=== PATIENT | male | born 1950 | race Caucasian/White ===

== ENCOUNTER 2021-08-25 11:10 | Observation (INO) | payer OTHER ==
[2021-08-18 13:05] LABS: HEMATOCRIT 45.1 % (42.0-52.0); HEMOGLOBIN 15.2 gm/dL (14.0-18.0); MCH 33.2 pg (26.0-34.0); MCHC 33.6 g/dL (28.0-37.0); MCV 98.8 fL (80.0-100.0); RBC 4.56 mil/uL (4.50-6.00); RDW 14.4 % (10.5-14.5); WBC 6.2 thou/uL (4.0-11.0)
[2021-08-18 13:09] LABS: URINE BILIRUBIN NEGATIVE (Negative); URINE BLOOD NEGATIVE (Negative); URINE CLARITY CLEAR; URINE COLOR YELLOW; URINE GLUCOSE-RANDOM* NEGATIVE (Negative); URINE KETONES NEGATIVE (Negative); URINE LEUKOCYTES-REFLEX NEGATIVE (Negative); URINE NITRITE-REFLEX NEGATIVE (Negative); URINE PROTEIN (DIPSTICK) NEGATIVE (Negative); URINE SPECIFIC GRAVITY 1.015 (1.005-1.035); URINE UROBILINOGEN 0.2 E.U./dl (0.2-1.0)
[2021-08-18 13:20] LABS: CALCIUM 8.9 mg/dL (8.5-10.1); CREATININE 0.9 mg/dL (0.7-1.3); POTASSIUM 4.6 mmol/L (3.5-5.1)
[2021-08-18 13:21] LABS: INR 0.93; PROTIME 10.2 Seconds (10.5-12.1)
--- NOTE | 2021-08-18 13:37 | EKG ---
[address] [address] ELECTROCARDIOGRAM REPORT Name: BONYDAYANNA Room #: [facility]..#: [id number] Admission: Attend Phys: Gilbert Espinosa MD Discharge: Date of : 46 Report #: [id number] [facility] Test Date: 2021-08-18 Test Time: 13:01:21 Pat Name: DAYANNA LOVETT Department: Room: Gender: Compass Operator: Eduardo ARTHUR : 1950 Requested By: Gilbert Espinosa Order Number: [id number] : Quinton Chapin Measurements Intervals [place]er Rate: 74 P: 19 RI: 153 QRS: 45 QRSD: 108 T: -3 QT: 388 QTc: 431 Interpretive Statements Sinus rhythm Probable inferior infarct, age indeterminate No previous ECG available for comparison Electronically Signed On 08-18-2021 13:37:15 [employer] by Quinton Chapin [email or web address] <ELECTRONICALLY SIGNED> By: Quinton Chapin MD, [facility] 08/18/21 1337 1301 1301 Quinton Chapin MD, FACPavel /EPI
[~2021-08-25] VITALS: Ht 180.3 cm; Wt 102.1 kg
[~2021-08-25 11:10] MED LIST: CLARITIN10 M3 PO; IBUPROFEN 400400 M1 PO; IRON325 M1 PO; LIPITOR40 MG PO; PROTONIX40 M2 PO; VYTORIN 10-401 EACH PO; ZESTRIL5 MG PO
[2021-08-25 12:21] VITALS: BP 134/86
[2021-08-25 17:44] VITALS: BP 130/81
--- NOTE | 2021-08-25 18:30 | NUR ---
PT RECEIVED FROM [facility] AT 1735 ALERT AND IN NO PAIN. SETTLED INTO BED. ORINETED TO UNIT. DECLINED ANY FOOD. DRINKING WATER. IV FLUIDS INFUSING. URINAL AT BEDSIDE. DSNG DRY W/ POLAR [place].
[2021-08-25 19:36] VITALS: BP 141/98
--- NOTE | 2021-08-26 04:01 | NUR ---
ASSESSMENT COMPLETED.RIGHT KNEE WITH CHIDI DRSG WELL SCDS AND POLAR [place] IN PLACE. AFEBRILE.ROOM AIR.PT ABLE TO SIT BY EDGE OF BED AND URINATE.IVF INFUSING.NO FURTHER CONCERNS AT THIS TIME.
[2021-08-26 04:15] VITALS: BP 132/72
[2021-08-26 07:25] VITALS: BP 133/92
--- NOTE | 2021-08-26 09:20 | NUR ---
71 year old male admitted for an elective R Navio Knee replacement. Will review therapy recommendations and discuss discharge needs with the patient who is listed per the record as A&O x4 and currently lives at home with spouse Macarena Santacruz at [phone]. Visited with sherita at beside, anticipated dc home today. Outpatient therapy set up with [facility] in [facility]. Has walker already. Independent. His will pick him up.
[2021-08-26 11:28] VITALS: BP 133/92
--- NOTE | 2021-08-26 11:41 | NUR ---
PT ALERT AND ORIENTED TIMES FOUR, VSS, IVF INFUSING PER ORDER. SCHEDULED PAIN MEDICATIONS CONTROLLING PAIN WELL. PT TOLEARTES MEDS AND MEALS. PT WORKED WELL WITH PHYSICAL THEARPY THIS MORNING, AND WAS CLEARED FOR DISCHARGE.
--- NOTE | 2021-08-28 10:49 | O ---
[facility] [place] [address] OPERATIVE REPORT Name: DAYANNA LOVETT Room #: 436-[facility] Samira Ashton#: [id number] Admission: 08/25/21 Attend Phys: Gilbert Espinosa MD Discharge: 08/26/21 Date of : 46 Report #: [id number] THIS REPORT FOR: cc: DIONISIO LAMA Physician not on staff Gilbert Espinosa MD ~ DATE OF SERVICE: 08/25/2021 PREOPERATIVE DIAGNOSIS: Right knee osteoarthritis. POSTOPERATIVE DIAGNOSIS: Right knee osteoarthritis. PROCEDURE: Right total knee arthroplasty using Navio robotic assistance. SURGEON: Gilbert Espinosa MD GRAVURE PRESS SET UP OPERATOR: France Ruano PA-C. INDICATION FOR GRAVURE PRESS SET UP OPERATOR: Throughout the case, extensive retraction, manipulation of the knee was required. This was afforded to me by my cook's assistant. ANESTHESIA: LMA with adductor canal block. IMPLANTS: A [employer] size 7 Journey II BCS cobalt chrome femur, size 6 tibia, size 11 polyethylene and size 35 patella. TOURNIQUET TIME: 52 minutes. ESTIMATED BLOOD LOSS: 25 mL COMPLICATIONS: None. SPECIMENS: None. CONDITION UPON LEAVING THE OR: Stable. INDICATIONS FOR PROCEDURE: The patient is a 71-year-old gentleman with severe right knee osteoarthritis. He had failed conservative measures for this and after discussion with him, he elected for right total knee arthroplasty. DESCRIPTION OF PROCEDURE: Risks, benefits, alternatives, complications were discussed in detail with the patient including but not limited to risk of anesthesia, risk of damage to nerves, arteries, blood vessels, risk for infection, bleeding, risk for continued knee pain and need for reoperation. Informed consent was obtained from the patient. Right knee was appropriately marked in the preoperative holding area. IV Ancef for preoperative antibiotics. [address] [address] OPERATIVE REPORT Name: DAYANNA LOVETT Room #: 436-P LETHA Ashton#: [id number] Admission: 08/25/21 Attend Phys: Gilbert Espinosa MD Discharge: 08/26/21 Date of : 46 Report #: [id number] Adductor canal block was placed by anesthesia. He was brought to the operating room and placed in the supine position on the operating table. LMA anesthesia was induced without complication. Tourniquet was placed on the right thigh. Right lower extremity was prepped and draped in normal sterile fashion. Timeout was performed properly identifying the patient and procedure as well as the instrumentation. All in the operating room were in agreement. Right lower extremity was exsanguinated, tourniquet was inflated. Tourniquet time was 52 minutes. Standard midline approach to knee was made with 10 blade through the skin. Dissection was taken down sharply to the fascia. Deep flaps were developed medially and laterally. Fresh 10 blade was used to make a medial parapatellar arthrotomy and the knee was inspected. There was severe medial compartment osteoarthritis with mild to moderate lateral and patellofemoral compartment osteoarthritis. ACL and PCL were removed sharply. Reference pins were placed in the tibia and the femur and the knee was digitally mapped using the [employer] robotic system. Intraoperative plan was made. We sized the size 7 femur, the size 6 tibia and a 10 spacer. After acceptance of the intraoperative plan, the distal femoral cut was made with Navio bur. Distal femoral cutting block was pinned in place and chamfer cuts were made. Attention was turned to the tibia. Remainder of the menisci removed with Bovie cautery. Tibial resection guide was pinned in place using Navio for placement and tibial resection was made. Flexion and extension gaps were checked and found to have good balance in flexion and extension both medially and laterally. Tibia was sized, found to be a size 6 and size 6 tibial trial was placed, pinned and punched. Size 7 femoral trial was placed and box cut was made. This was then trialed with a size 10 and then a size 11 polyethylene. The size 11 polyethylene demonstrated 1-1.5 mm of laxity medially and laterally throughout range of motion of the knee. A 9 mm of bone was resected from the posterior surface of the patella and a size 35 patellar trial button was placed. Knee was taken through range of motion, found to be stable, found to have good patellar tracking. Trial components were removed. Bone ends were thoroughly irrigated with normal saline. Final size 6 tibia, size 7 Journey II BCS cobalt chrome femur and a size 35 patella were cemented in place using standard cementation techniques. While the cement cured, a periarticular injection consisting of morphine, ropivacaine, epinephrine, and Toradol was placed around the knee joint capsule. After the cement cured, tourniquet was deflated. Hemostasis was obtained with Bovie cautery. Final size 11 polyethylene was placed. A gram of vancomycin was placed deep in the joint. Fascia was closed with 0 Vicryl. Skin was closed with 2-0 Vicryl, 3-0 Monocryl. Dermabond and a CHIDI dressing was applied. The patient tolerated this procedure well and went to recovery room under care of anesthesia postoperatively. <ELECTRONICALLY SIGNED> By: Gilbert Espinosa MD 08/28/21 1049 [id number] Gilbert Espinosa MD /nt
== END 2021-08-26 13:47 | disposition home or self-care (01) ==
LOC: OR → TBA 11:10 → OR 11:11 → EDSTATUS 16:14 → 4S 17:15 → OR 17:16 → 4S 08-26 13:47
PROVIDERS: ADMIT Orthopaedic Surgery; ATTEND Orthopaedic Surgery
DX: M17.11 Unilateral primary osteoarthritis, right knee (principal); I10 Essential (primary) hypertension; E78.5 Hyperlipidemia, unspecified; Z79.899 Other long term (current) drug therapy; Z20.822 Contact with and (suspected) exposure to COVID-19
CPT/HCPCS: 50010; 50101; 50415; 50954; 51130; 51225; 51320; 52001; 52282; 53000; 53078; 54118; 56527; 56528; 57095; 57103; 57110; 57127; 57180; 58239; 62110; 62900; 64039; 70005